=== PATIENT | female | born 1970 | race Hispanic/Latino ===

== ENCOUNTER 2021-05-21 18:52 | Inpatient (IN) | payer BC ==
[2021-05-21 19:49] LABS: #Basophils 0.1 thou/uL (0.0-0.2); #Eosinphils 0.2 thou/uL (0.0-0.7); #Lymphocytes 2.7 thou/uL (1.20-3.40); #Monocytes 0.6 thou/uL (0.11-0.59); #Neutrophils 3.8 thou/uL (1.40-6.50); %Basophils 1.1 % (0.0-1.0); %Eosinophils 2.4 % (0.0-10.0); %Lymphocytes 37.2 % (21.0-51.0); %Monocytes 7.6 % (0.0-10.0); %Neutrophils 51.7 % (42.0-75.0); BHCG - Serum Negative (NEGATIVE); Hemoglobin 11.5 g/dL (12.0-16.0); Mean Corpuscular Volume 81.8 fL (78.0-98.0); Mean Platelet Volume 8.5 fL (7.4-10.4); Platelet Count 226 thou/uL (130-400); Pregs Control Background? CLEAR/WHITE (CLR/WHITE); Pregs Control Bar Appear? YES (CONTROL BAR); Red Blood Cell (RBC) Count 4.24 mill/uL (4.20-5.40); White Blood Cell (WBC) Count 7.3 thou/uL (4.8-10.8)
[2021-05-21] MEDS ORDERED: Enoxaparin Sodium 80 MG/0.8 ML SYRINGE ONE (20:37)
[2021-05-21] MEDS ORDERED: Acetaminophen 500 MG TAB ONE (20:37)
[2021-05-21] MEDS ORDERED: Enoxaparin Sodium 100 MG/ML SYRINGE ONE (20:39)
[2021-05-21 21:20] LABS: Albumin 3.5 g/dL (3.5-5.0)
[2021-05-21 21:21] LABS: Chloride 105 mmol/L (98-107); Potassium 3.5 mmol/L (3.5-5.1); Sodium 138 mmol/L (136-145)
[2021-05-21 21:22] LABS: Calcium 7.9 mg/dL (7.8-10.44)
[2021-05-21 21:23] LABS: Glucose 88 mg/dL (70-105); Protein, Total 6.5 g/dL (6.0-8.3)
[2021-05-21 21:24] LABS: Anion Gap 13 mmol/L (10-20); Carbon Dioxide 24 mmol/L (22-29)
[2021-05-21 21:25] LABS: Bilirubin, Total 0.3 mg/dL (0.2-1.2)
[2021-05-21 21:26] LABS: Alkaline Phosphatase 67 U/L (40-110); Calc. Creatinine Clearance 0 mL/min (70-130)
[2021-05-21 21:27] LABS: BUN (Urea Nitrogen) 20 mg/dL (9.8-20.1)
[2021-05-21 21:28] LABS: AST (SGOT) 23 U/L (5-34)
[2021-05-21 21:29] LABS: ALT (SGPT) 16 U/L (8-55)
[2021-05-21 23:18] LABS: Troponin I 0.013 ng/mL (< 0.028)
[2021-05-22 00:23] VITALS: BMI 38.1
[2021-05-22] MEDS ORDERED: HYDROcodone/Acetaminophen 7.5/325 mg Tablet PO SCH (00:45)
[2021-05-22] MEDS ORDERED: Ondansetron PF 4 MG/2 ML Vial IVP PRN (01:12)
[2021-05-22] MEDS ORDERED: Nitroglycerin 0.4 MG TAB (25 Tab Bottle) SL PRN (01:12)
[2021-05-22] MEDS ORDERED: Acetaminophen 325 MG TAB PO PRN (01:12)
[2021-05-22 02:55] LABS: #Basophils 0.1 thou/uL (0.0-0.2); #Eosinphils 0.2 thou/uL (0.0-0.7); #Lymphocytes 2.8 thou/uL (1.20-3.40); #Monocytes 0.7 thou/uL (0.11-0.59); #Neutrophils 3.9 thou/uL (1.40-6.50); %Basophils 0.7 % (0.0-1.0); %Eosinophils 2.3 % (0.0-10.0); %Lymphocytes 35.9 % (21.0-51.0); %Monocytes 9.6 % (0.0-10.0); %Neutrophils 51.4 % (42.0-75.0); Hemoglobin 10.9 g/dL (12.0-16.0); Mean Corpuscular HGB CONC 33.3 g/dL (32.0-36.0); Mean Corpuscular Hemoglobin 27.2 pg (27.0-31.0); Mean Corpuscular Volume 81.7 fL (78.0-98.0); Mean Platelet Volume 7.3 fL (7.4-10.4); Platelet Count 223 thou/uL (130-400); RBC Distribution Width 15.4 % (11.5-14.5); Red Blood Cell (RBC) Count 4.01 mill/uL (4.20-5.40); White Blood Cell (WBC) Count 7.7 thou/uL (4.8-10.8)
[2021-05-22 03:15] LABS: Troponin I Less than 0.010 ng/mL (< 0.028)
[2021-05-22 03:54] LABS: Chloride 105 mmol/L (98-107); Potassium 3.2 mmol/L (3.5-5.1); Sodium 137 mmol/L (136-145)
[2021-05-22 03:55] LABS: Calcium 8.1 mg/dL (7.8-10.44); Glucose 119 mg/dL (70-105)
[2021-05-22 03:57] LABS: Anion Gap 8 mmol/L (10-20); Carbon Dioxide 27 mmol/L (22-29)
[2021-05-22 03:58] LABS: Calc. Creatinine Clearance 100 mL/min (70-130)
[2021-05-22 03:59] LABS: BUN (Urea Nitrogen) 22 mg/dL (9.8-20.1)
[2021-05-22] MEDS ORDERED: Potassium Chloride 20 MEQ TAB PO SCH (05:45)
[2021-05-22] MEDS ORDERED: Magnesium Oxide 400 MG TAB PO SCH (06:00)
[2021-05-22] MEDS ORDERED: hydrALAZINE 20 MG/ML VIAL SLOW IVP PRN (06:05)
[2021-05-22 06:55] LABS: Magnesium 2.3 mg/dL (1.6-2.6)
[2021-05-22] MEDS ORDERED: Electrolyte Replacement Protocol FS PRN (07:15)
[2021-05-22] MEDS ORDERED: Electrolyte Replacement Protocol 1 EACH FS SCH (07:15)
[2021-05-22] MEDS ORDERED: ADENOSINE 60 MG/20 ML VIAL ONE (08:49)
[2021-05-22 11:26] LABS: Potassium 3.7 mmol/L (3.5-5.1)
[2021-05-22] MEDS ORDERED: FLUoxetine HCl 20 MG CAP PO SCH ×2 (12:15)
[2021-05-22] MEDS ORDERED: Ferrous Sulfate 325 MG TAB PO SCH (12:15)
[2021-05-22] MEDS ORDERED: Amlodipine 5 MG TAB PO SCH ×2 (12:15→14:45)
[2021-05-22] MEDS: Aspirin 81 mg Enteric Coated Tablet PO SCH (12:36)
[2021-05-22] MEDS ORDERED: Lisinopril 10 MG TAB PO SCH (14:00)
[2021-05-22] MEDS ORDERED: CATH Communication Order-Pharmacy FS SCH (14:00)
[2021-05-22] MEDS ORDERED: Enoxaparin Sodium 100 MG/ML SYRINGE SC SCH (14:45)
[2021-05-22] MEDS ORDERED: Melatonin 3 MG TAB PO PRN (16:39)
[2021-05-22] MEDS ORDERED: diphenhydrAMINE 25 MG CAP PO PRN (16:40)
[2021-05-23 04:47] LABS: #Basophils 0.1 thou/uL (0.0-0.2); #Eosinphils 0.2 thou/uL (0.0-0.7); #Lymphocytes 1.9 thou/uL (1.20-3.40); #Monocytes 0.5 thou/uL (0.11-0.59); #Neutrophils 3.6 thou/uL (1.40-6.50); %Basophils 0.9 % (0.0-1.0); %Eosinophils 2.6 % (0.0-10.0); %Lymphocytes 30.1 % (21.0-51.0); %Monocytes 8.3 % (0.0-10.0); Hemoglobin 11.6 g/dL (12.0-16.0); Mean Corpuscular HGB CONC 32.3 g/dL (32.0-36.0); Mean Corpuscular Hemoglobin 26.6 pg (27.0-31.0); Mean Corpuscular Volume 82.5 fL (78.0-98.0); Mean Platelet Volume 7.5 fL (7.4-10.4); Platelet Count 281 thou/uL (130-400); RBC Distribution Width 15.7 % (11.5-14.5); Red Blood Cell (RBC) Count 4.35 mill/uL (4.20-5.40); White Blood Cell (WBC) Count 6.1 thou/uL (4.8-10.8)
[2021-05-23 04:54] LABS: Hemoglobin A1c 4.9 % (4.0-6.0)
[2021-05-23 05:11] LABS: Anion Gap 11 mmol/L (10-20); BUN (Urea Nitrogen) 16 mg/dL (9.8-20.1); Calc. Creatinine Clearance 116 mL/min (70-130); Calcium 8.3 mg/dL (7.8-10.44); Carbon Dioxide 26 mmol/L (22-29); Chloride 106 mmol/L (98-107); Cholesterol 221 mg/dl (< 200 Desired); Glucose 95 mg/dL (70-105); HDL Cholesterol 37 mg/dL (>60 Neg Risk); LDL Cholesterol, Calculated 141 mg/dL; Magnesium 2.3 mg/dL (1.6-2.6); Potassium 3.8 mmol/L (3.5-5.1); Sodium 139 mmol/L (136-145); Triglycerides 213 mg/dL (Less than 150)
[2021-05-23] MEDS: Sodium Chloride 0.9% 1,000 ML IV SCH ×2 (05:46→14:24)
[2021-05-23] MEDS: Aspirin 81 mg Enteric Coated Tablet PO SCH (05:47)
[2021-05-23] MEDS ORDERED: Lisinopril 10 MG TAB PO SCH ×3 (06:00→09:00)
[2021-05-23] MEDS ORDERED: Amlodipine 10 MG TAB PO SCH ×2 (06:00→09:00)
[2021-05-23] MEDS ORDERED: Lidocaine 1% (PF) 30 ML VIAL ONE (06:21)
[2021-05-23] MEDS ORDERED: Midazolam HCl 2 mg/2 ml Vial ONE (07:13)
[2021-05-23] MEDS ORDERED: Fentanyl 250 MCG/5 ML VIAL ONE (07:13)
[2021-05-23] MEDS ORDERED: Nitroglycerin 100MG/250ML BOT 0 ML ONE (07:30)
[2021-05-23] MEDS ORDERED: Nitroglycerin 4.9 GM Bottle ONE (07:41)
[2021-05-23] MEDS ORDERED: Ferrous Sulfate 325 MG TAB PO SCH (08:00)
[2021-05-23] MEDS ORDERED: Iopamidol 370 76% 100 ML VIAL ONE (08:39)
[2021-05-23] MEDS ORDERED: Amlodipine 5 MG TAB PO SCH ×2 (09:00)
[2021-05-23] MEDS ORDERED: FLUoxetine HCl 20 MG CAP PO SCH (09:00)
[2021-05-23] MEDS ORDERED: Nitroglycerin 0.4 MG TAB (25 Tab Bottle) SL PRN (09:28)
[2021-05-23] MEDS ORDERED: Sodium Chloride 0.9% 200 ML IV PRN (09:28)
[2021-05-23] MEDS ORDERED: Acetaminophen/Codeine 30-300mg Tablet PO PRN (09:28)
[2021-05-23 17:39] VITALS: BP 138/67; TEMP 98.6
[2021-05-23] MEDS ORDERED: Rosuvastatin 20 MG TAB PO SCH (21:00)
[2021-05-24] MEDS ORDERED: Lisinopril 10 MG TAB PO SCH (09:00)
[2021-05-24] MEDS ORDERED: Amlodipine 10 MG TAB PO SCH (09:00)
[2021-05-24] MEDS ORDERED: Ezetimibe 10 MG TAB PO SCH (09:00)
[2021-05-25] MEDS ORDERED: FLU VACC QS2021-22(6MOS UP)/PF 60 MCG/0.5 ML SYRINGE IM ONE (09:00)
== END 2021-05-23 17:41 | disposition home or self-care (01) | DRG 287 ==
LOC: ERS 18:52 → 2SW 22:24 → OBSVTOIN 05-23 17:39
PROVIDERS: ADMIT Internal Medicine; ATTEND Hospitalist
PROC: 4A023N7 Measurement of Cardiac Sampling and Pressure, Left Heart, Percutaneous Approach (ICD-10-PCS; principal; 2021-05-23)
PROC: B2111ZZ Fluoroscopy of Multiple Coronary Arteries using Low Osmolar Contrast (ICD-10-PCS; 2021-05-23)
PROC: B2151ZZ Fluoroscopy of Left Heart using Low Osmolar Contrast (ICD-10-PCS; 2021-05-23)
DX: I25.110 Atherosclerotic heart disease of native coronary artery with unstable angina pectoris (principal); N17.9 Acute kidney failure, unspecified; I16.1 Hypertensive emergency; F41.9 Anxiety disorder, unspecified; I11.9 Hypertensive heart disease without heart failure; N93.9 Abnormal uterine and vaginal bleeding, unspecified; E87.6 Hypokalemia; D64.9 Anemia, unspecified; Z79.899 Other long term (current) drug therapy; Z90.710 Acquired absence of both cervix and uterus; Z87.891 Personal history of nicotine dependence; Z98.51 Tubal ligation status; Z90.49 Acquired absence of other specified parts of digestive tract
CPT/HCPCS: 36415; 71045; 78452; 80048; 80053; 80061; 83036; 83735; 84484; 84703; 85025; 93017; 93306; 93458; 96372; 99152; 99153; 99285; A9500; G0378; J0153; J1650; J2001; J2250; J3010; J7050; Q9967